=== PATIENT | female | born 1970 | race American Indian/Alaskan Native ===

== ENCOUNTER 2018-11-24 13:58 | Emergency (ER) | payer OTHER ==
[2018-11-24 14:31] VITALS: BP 142/91
--- NOTE | 2018-11-24 14:32 | Emergency Department Report ---
Chief Complaint: Medical Clearance Stated Complaint: MED REFILL Time Seen by Provider: 11/24/18 14:29 - HPI History of Present Illness: 48 y o female presents to ED stating that she is [place], she wants a refill on her amlodipine 5mg which she takes daily. She states last dose was yesterday she has no other complaints. she denies f/c/n/v/do/vision disturbance, chest pain - ROS Review of Systems: denies all sx, See HPI MSE screening note: Focused history and physical exam performed. Due to findings the following was ordered: ED Disposition for MSE Clinical Impression: Medication refill Disposition: DC-01 TO HOME OR SELFCARE Is pt being admited?: No Does the pt Need Aspirin: No Condition: Stable Instructions: Amlodipine (By mouth) Additional Instructions: take medication as prescribed daily follow up with your primary care doctor Prescriptions: amLODIPine [Norvasc] 5 mg PO DAILY #40 tab Referrals: [facility] [Outside] - 3-5 Days Forms: Work/School Release Form(ED) Time of Disposition: 14:45
== END 2018-11-24 14:52 | disposition home or self-care (01) ==
LOC: ED 13:58
DX: I10 Essential (primary) hypertension (principal); Z76.0 Encounter for issue of repeat prescription